=== PATIENT | female | born 2000 | race Caucasian/White ===

== ENCOUNTER 2021-03-28 11:54 | Emergency (ER) | payer OTHER ==
[~2021-03-28] VITALS: Ht 162.6 cm; Wt 85.9 kg
[2021-03-28 14:40] LABS: RSV AMPLIFICATION NEGATIVE (NEGATIVE)
[2021-03-28 14:54] VITALS: BP 127/76
== END 2021-03-28 15:47 | disposition home or self-care (01) ==
LOC: M ED 11:54
DX: J06.9 Acute upper respiratory infection, unspecified (principal); E66.9 Obesity, unspecified; Z91.040 Latex allergy status; Z88.5 Allergy status to narcotic agent

== ENCOUNTER 2022-06-05 06:17 | Emergency (ER) | payer OTHER ==
[~2022-06-05] VITALS: Ht 162.6 cm; Wt 93.9 kg
[2022-06-05 07:15] LABS: BASO # 0.1 10^3/uL (0.0-0.2); BASO % 0.7 % (0.0-1.0); EOS # 0.2 10^3/uL (0.0-0.5); EOS % 1.9 % (0.0-3.0); HEMATOCRIT 44.6 % (36.0-47.0); HEMOGLOBIN 14.2 g/dl (12.0-15.5); LYMPH # 2.4 10^3/uL (1.5-5.0); LYMPH % 26.6 % (24.0-44.0); MEAN CORPUSCULAR HEMOGLOBIN 28.5 pg (27.0-33.0); MEAN CORPUSCULAR HGB CONC 31.8 g/dl (32.0-36.5); MEAN CORPUSCULAR VOLUME 89.4 fl (80.0-96.0); MONO # 0.6 10^3/uL (0.0-0.8); MONO % 6.4 % (2.0-8.0); NEUTROPHILS # 5.7 10^3/uL (1.5-8.5); NEUTROPHILS % 64.1 % (36.0-66.0); PLATELET COUNT, AUTOMATED 298 10^3/uL (150-450); RED BLOOD COUNT 4.99 10^6/uL (4.00-5.40); WHITE BLOOD COUNT 8.8 10^3/uL (4.0-10.0)
[2022-06-05 08:27] LABS: HCG, SERUM QUALITATIVE NEGATIVE (NEGATIVE)
[2022-06-05 08:40] LABS: LIPASE 28 U/L (12-53)
[2022-06-05 08:43] LABS: ALKALINE PHOSPHATASE 78 U/L (46-116); ALT/SGPT 34 U/L (7.0-40); AST/SGOT 22 U/L (<34); BILIRUBIN,DIRECT 0.1 MG/DL (<0.4); BILIRUBIN,TOTAL 0.4 MG/DL (0.3-1.2); BLOOD UREA NITROGEN 16 MG/DL (9-23); CALCIUM LEVEL 9.8 MG/DL (8.5-10.1); CARBON DIOXIDE LEVEL 25 MMOL/L (20-31); CHLORIDE LEVEL 106 MMOL/L (98-107); CREATININE FOR GFR 0.85 MG/DL (0.55-1.30); GLOMERULAR FILTRATION RATE > 60.0 (>60); GLUCOSE, FASTING 99 MG/DL (60-100); POTASSIUM SERUM 3.8 MMOL/L (3.5-5.1); SODIUM LEVEL 142 MMOL/L (136-145); TOTAL PROTEIN 7.2 G/DL (5.7-8.2)
[2022-06-05] MEDS ORDERED: PYRI0.4T PO (09:15)
[2022-06-05] MEDS ORDERED: BACT800T5 PO (09:18)
[2022-06-05] MEDS ORDERED: BACTRIM 160MG/800MG DS TAB PO ONE (09:25)
[2022-06-05] MEDS ORDERED: PHENAZOPYRIDINE 100 MG TAB PO ONE (09:25)
[2022-06-05 09:39] VITALS: BP 122/56
== END 2022-06-05 09:40 | disposition home or self-care (01) ==
LOC: M ED 06:17
DX: N39.0 Urinary tract infection, site not specified (principal); R10.84 Generalized abdominal pain; Z90.89 Acquired absence of other organs; Z88.8 Allergy status to other drugs, medicaments and biological substances; Z91.040 Latex allergy status

== ENCOUNTER → 2022-09-27 | Outpatient (CLI) | payer OTHER ==
[~2022-09-27] MED LIST: BACT800T5 PO; PYRI0.4T PO
== END ==
LOC: M LAB 07:44 → M RAD 07:44
PROVIDERS: ATTEND Nurse Practitioner Family
DX: R06.02 Shortness of breath (principal)

== ENCOUNTER → 2022-09-27 | Outpatient (CLI) | payer OTHER | LOC: M RAD 07:41 | PROVIDERS: ATTEND Physician Assistant | DX: S82.65XA Nondisplaced fracture of lateral malleolus of left fibula, initial encounter for closed fracture (principal); X58.XXXA Exposure to other specified factors, initial encounter; Y92.89 Other specified places as the place of occurrence of the external cause; Y93.89 Activity, other specified; Y99.8 Other external cause status ==

== ENCOUNTER 2024-02-21 09:41 | Emergency (ER) | payer MEDICARE, OTHER ==
[~2024-02-21] VITALS: Ht 162.6 cm; Wt 128.2 kg
[2024-02-21 11:24] LABS: HEMOGLOBIN 13.6 g/dl (12.0-15.5); MEAN CORPUSCULAR HEMOGLOBIN 28.9 pg (27.0-33.0); MEAN CORPUSCULAR HGB CONC 32.4 g/dl (32.0-36.5); MEAN CORPUSCULAR VOLUME 89.4 fl (80.0-96.0); PLATELET COUNT, AUTOMATED 263 10^3/uL (150-450)
[2024-02-21 11:50] LABS: BLOOD UREA NITROGEN 10 MG/DL (9-23); CALCIUM LEVEL 8.7 MG/DL (8.5-10.1); CARBON DIOXIDE LEVEL 24 MMOL/L (20-31); CHLORIDE LEVEL 111 MMOL/L (98-107); CREATININE FOR GFR 0.74 MG/DL (0.55-1.30); GLOMERULAR FILTRATION RATE > 60.0 (>60); GLUCOSE, FASTING 96 MG/DL (60-100); POTASSIUM SERUM 4.3 MMOL/L (3.5-5.1); SODIUM LEVEL 139 MMOL/L (136-145)
[2024-02-21 13:44] LABS: HCG, SERUM QUALITATIVE NEGATIVE (NEGATIVE)
[2024-02-21] MEDS: ACETAMINOPHEN 500 MG TAB PO ONE (14:43)
[2024-02-21 15:01] LABS: Trichomonas vaginalis (AMP) NOT DETECTED (NEGATIVE)
[2024-02-21 15:24] LABS: GC DNA AMPLIFICATION NEGATIVE (NEGATIVE)
[2024-02-21] MEDS ORDERED: MACR100C43 PO (15:32)
[2024-02-21] MEDS: cefTRIAXone SOD 1GM VIAL IM ONE (15:46)
[2024-02-21] MEDS: LIDOCAINE 1% SDV 5ML VIAL DILUENT ONE (15:47)
[2024-02-21 15:58] VITALS: BP 117/59; TEMP 97.6; O2SAT 97
== END 2024-02-21 16:01 | disposition home or self-care (01) ==
LOC: M ED 09:41
DX: N39.0 Urinary tract infection, site not specified (principal); N83.299 Other ovarian cyst, unspecified side; Z88.5 Allergy status to narcotic agent; Z91.040 Latex allergy status
CPT/HCPCS: 76856; 80048; 81001; 84703; 85027; 86850; 86900; 86901; 87088; 87186; 87661; 87810; 87850; 93976; 96372; 99283; J0696

== ENCOUNTER 2024-06-09 20:26 | Emergency (ER) | payer MEDICARE, OTHER ==
[~2024-06-09] VITALS: Ht 162.6 cm; Wt 97.1 kg
[~2024-06-09 20:26] MED LIST changes: +MACR100C43 PO
[2024-06-09 20:29] VITALS: BP 159/89; TEMP 97.6; O2SAT 100
== END 2024-06-10 00:59 | disposition home or self-care (01) ==
LOC: M ED 20:26
DX: O20.8 Other hemorrhage in early pregnancy (principal); O23.41 Unspecified infection of urinary tract in pregnancy, first trimester; Z3A.08 8 weeks gestation of pregnancy; Z88.8 Allergy status to other drugs, medicaments and biological substances; Z91.040 Latex allergy status

== ENCOUNTER 2024-07-09 15:45 | Emergency (ER) | payer MEDICARE, OTHER ==
[~2024-07-09] VITALS: Ht 162.6 cm; Wt 97.5 kg
[2024-07-09 17:27] LABS: BASO % 0.3 % (0.0-1.0); EOS # 0.1 10^3/uL (0.0-0.5); EOS % 0.5 % (0.0-3.0); HEMATOCRIT 40.1 % (36.0-47.0); HEMOGLOBIN 13.5 g/dl (12.0-15.5); LYMPH # 1.3 10^3/uL (1.5-5.0); LYMPH % 10.7 % (24.0-44.0); MEAN CORPUSCULAR HEMOGLOBIN 28.9 pg (27.0-33.0); MEAN CORPUSCULAR HGB CONC 33.7 g/dl (32.0-36.5); MEAN CORPUSCULAR VOLUME 85.9 fl (80.0-96.0); MONO # 0.8 10^3/uL (0.0-0.8); MONO % 6.8 % (2.0-8.0); NEUTROPHILS # 9.7 10^3/uL (1.5-8.5); NEUTROPHILS % 81.3 % (36.0-66.0); PLATELET COUNT, AUTOMATED 272 10^3/uL (150-450); RED BLOOD COUNT 4.67 10^6/uL (4.00-5.40); WHITE BLOOD COUNT 11.9 10^3/uL (4.0-10.0)
[2024-07-09 17:49] LABS: LIPASE 28 U/L (12-53)
[2024-07-09 17:51] LABS: ALBUMIN 3.6 G/DL (3.2-5.2); ALKALINE PHOSPHATASE 62 U/L (35-104); ALT/SGPT 14 U/L (7.0-40); AST/SGOT 15 U/L (<34); BILIRUBIN,DIRECT 0.1 MG/DL (<0.4); BILIRUBIN,TOTAL 0.4 MG/DL (0.3-1.2); BLOOD UREA NITROGEN 8 MG/DL (9-23); CALCIUM LEVEL 9.1 MG/DL (8.5-10.1); CARBON DIOXIDE LEVEL 24 MMOL/L (20-31); CHLORIDE LEVEL 108 MMOL/L (98-107); CREATININE FOR GFR 0.55 MG/DL (0.55-1.30); GLOMERULAR FILTRATION RATE > 60.0 (>60); GLUCOSE, FASTING 90 MG/DL (60-100); POTASSIUM SERUM 4.4 MMOL/L (3.5-5.1); SODIUM LEVEL 137 MMOL/L (136-145); TOTAL PROTEIN 6.8 G/DL (5.7-8.2)
[2024-07-09] MEDS ORDERED: FAMO1TAB11 (17:51)
[2024-07-09] MEDS ORDERED: PYRI25TA2 (17:51)
[2024-07-09] MEDS ORDERED: UNIS25TA3 (17:51)
[2024-07-09 17:58] LABS: KETONE, URINE AUTO RFX NEGATIVE (NEGATIVE); MUCUS, URINE RFX SMALL (NEGATIVE); NITRITE, URINE AUTO RFX NEGATIVE (NEGATIVE); RBC, URINE AUTO RFX 3 /HPF (0-3); SQUAM EPITHELIAL CELL UR AURFX 2 /HPF (0-6)
[2024-07-09 17:59] LABS: LEUKOCYTE ESTERASE UR AUTO RFX 1+ (NEGATIVE); WBC, URINE AUTO RFX 132 /HPF (0-3)
[2024-07-09 18:04] LABS: HCG, SERUM QUANTITATIVE 69357.1 MIU/ML (<4.2)
[2024-07-09] MEDS ORDERED: CEPH500C PO (21:52)
[2024-07-09] MEDS ORDERED: ONDA-282 PO (21:52)
[2024-07-09 22:10] VITALS: BP 118/61; TEMP 98.2; O2SAT 98
[2024-07-09] MEDS: CEPHALEXIN 500 MG CAP PO ONE (22:10)
== END 2024-07-09 22:12 | disposition home or self-care (01) ==
LOC: M ED 15:45
DX: O23.41 Unspecified infection of urinary tract in pregnancy, first trimester (principal); Z88.8 Allergy status to other drugs, medicaments and biological substances; Z91.040 Latex allergy status; Z3A.12 12 weeks gestation of pregnancy

== ENCOUNTER 2024-09-01 11:23 | Emergency (ER) | payer OTHER ==
[~2024-09-01] VITALS: Ht 162.6 cm; Wt 98.8 kg
[~2024-09-01 11:23] MED LIST changes: +CEPH500C PO; +FAMO1TAB11; +ONDA-282 PO; +PYRI25TA2; +UNIS25TA3
[2024-09-01 11:24] VITALS: BP 106/56; TEMP 98.1; O2SAT 98
[2024-09-01] MEDS ORDERED: OSEL75CA PO (14:27)
== END 2024-09-01 14:48 | disposition home or self-care (01) ==
LOC: M ED 11:23
DX: O99.512 Diseases of the respiratory system complicating pregnancy, second trimester (principal); J09.X2 Influenza due to identified novel influenza A virus with other respiratory manifestations; Z3A.19 19 weeks gestation of pregnancy; Z79.83 Long term (current) use of bisphosphonates; Z79.899 Other long term (current) drug therapy; Z88.5 Allergy status to narcotic agent; Z91.040 Latex allergy status